=== PATIENT | female | born 1940 | race Caucasian/White ===

== ENCOUNTER 2022-01-17 12:24 | Emergency (ER) | payer MEDICARE, OTHER ==
[2022-01-17 13:11] LABS: HEMOGLOBIN 15.6 gm/dl (12.3-15.3); RED BLOOD COUNT 5.36 M/UL (4.00-5.10); WHITE BLOOD COUNT 6.3 K/UL (4.5-11.0)
[2022-01-17] MEDS ORDERED: CEFUROXIME500 MG PO (21:52)
== END 2022-01-17 23:28 | disposition home or self-care (01) ==
LOC: ER1 12:24 → EDBD 12:24 → ER1 23:28
PROVIDERS: Physician Assistant
DX: N39.0 Urinary tract infection, site not specified (principal); I10 Essential (primary) hypertension
CPT/HCPCS: 70496; 70498; 71045; 80053; 81001; 82550; 82553; 83874; 84484; 85025; 93005; 96374; 99285; J0696; Q9967